=== PATIENT | female | born 1960 ===

== ENCOUNTER 2023-01-08 10:28 | Outpatient (REF) | payer OTHER, SELFPAY ==
--- NOTE | 2023-01-08 11:30 | MHC.AU.HA3 ---
Hearing Instrument Follow-Up- Binaural Date of Visit: 01/08/23 Right Ear: Make, Model, Color, Serial Number: Oticon More 2 miniRITE-T, SN: [id number], chroma beige Dietary Director Repair Warranty: 08/18/2024 Dietary Director Loss and Damage Warranty: 08/18/2024 Battery Size: 312 Lion Trainer/Slim Tube: 2/85 Earmold/Dome/CShell/SlimTip:8mm double calhoun Type of Wax Guard: Prowax minifit Dispensed By: Avery Fernández Date of Fittin07/19/2021 Left Ear: Make, Model, Color, Serial Number: Oticon More 2 miniRITE-T, SN: [id number], chroma beige Dietary Director Repair Warranty: 08/18/2024 Dietary Director Loss and Damage Warranty: 08/18/2024 Battery Size: 312 Lion Trainer/Slim Tube: 2/85 Earmold/Dome/CShell/SlimTip: 8mm double calhoun Type of Wax Guard: Prowax minifit Dispensed By: Avery Fernández Date of Fittin07/19/2021 Follow-Up Summary: The patient here as her left hearing aid recently stopped working. She obtained her hearing aids at [facility] but is in need of a new President + Publisher so she is transferring her care here. Otoscopy reveals clear ear canals bilaterally. Visual inspection of the hearing aids reveals the left hearing aid wax guard is completely occluded. I replaced domes, wax guards and brushed both left and right hearing aids. Listening check reveals clear sound from both devices. The patient was happy to report good sound from both now. I read and saved her hearing aid settings in [employer]. I recommended an updated hearing test as her last was over a year ago at [facility]. She will get an order faxed from her PCP and try to get a copy of her last audigram. She is in need of more domes and wax guards. 1 pack of each dispensed. Reviewed cleaning. The patient states she has [employer], bill to insurance today. Diagnosis Code(s): Primary Diagnosis: H90.3 Bilateral Sensorineural Hearing Loss Signature: Provider: Eli Griffin, [facility]
== END 2023-01-08 10:29 | disposition home or self-care (01) ==
LOC: HO.HAP 10:28
PROVIDERS: Visit Provider Internal Medicine
DX: Z46.1 Encounter for fitting and adjustment of hearing aid (principal); H90.3 Sensorineural hearing loss, bilateral
CPT/HCPCS: 92593; 99499; V5267

== ENCOUNTER 2023-05-30 14:48 | Outpatient (REF) | payer OTHER, SELFPAY ==
--- NOTE | 2023-05-31 10:03 | MHC.AU.HA3 ---
Hearing Instrument Follow-Up- Binaural Date of Visit: 05/31/23 Right Ear: Make, Model, Color, Serial Number: Oticon More 2 miniRITE-T SN: [id number] Color: Chroma beige Intellectual Property Manager Repair Warranty: 08/18/2024 Intellectual Property Manager Loss and Damage Warranty: 08/18/2024 Battery Size: 312 Logging Crew Supervisor/Slim Tube: 2/85 Earmold/Dome/CShell/SlimTip:8mm double calhoun (no retention tail) Type of Wax Guard: miniFit ProWax Dispensed By: [facility] Date of Fittin07/19/2021 Left Ear: Make, Model, Color, Serial Number: Oticon More 2 miniRITE-T SN: [id number] Color: Chroma beige Intellectual Property Manager Repair Warranty: 08/18/2024 Intellectual Property Manager Loss and Damage Warranty: 08/18/2024 Battery Size: 312 Logging Crew Supervisor/Slim Tube: 2/85 Earmold/Dome/CShell/SlimTip: 8mm double calhoun (no retention tail) Type of Wax Guard: miniFit ProWax Dispensed By: [facility] Date of Fittin07/19/2021 Follow-Up Summary: Cherie dropped off her left hearing aid yesterday with a loose accounts receivable supervisor. Upon inspection, accounts receivable supervisor was broken near the junction of the hearing aid. Cleaned hearing aid. Vacuumed microphones. Replaced accounts receivable supervisor and dome. A listening check demonstrated that the hearing aid is in good working order. Recommendations: Hearing instrument follow-up or maintenance as needed. Please contact our clinic with any questions or concerns. Diagnosis Code(s): Primary Diagnosis: H90.3 Bilateral Sensorineural Hearing Loss Signature: Provider: Dani Hernandez, [facility]
== END 2023-05-30 14:49 | disposition home or self-care (01) ==
LOC: HO.HAP 14:48
PROVIDERS: Visit Provider Internal Medicine
DX: Z13.89 Encounter for screening for other disorder (principal)

== ENCOUNTER 2023-05-31 12:16 | Outpatient (REF) | payer OTHER, SELFPAY | END 2023-05-31 12:17 | disposition home or self-care (01) | LOC: HO.HAP 12:16 | PROVIDERS: Visit Provider Internal Medicine | DX: Z46.1 Encounter for fitting and adjustment of hearing aid (principal); H90.3 Sensorineural hearing loss, bilateral | CPT/HCPCS: 92592 ==

== ENCOUNTER 2023-06-07 07:49 | Outpatient (REF) | payer OTHER, SELFPAY ==
--- NOTE | 2023-06-07 08:22 | MHC.AU.HA3 ---
Hearing Instrument Follow-Up- Binaural Date of Visit: 06/07/23 Right Ear: Make, Model, Color, Serial Number: Oticon More 2 miniRITE-T SN: [id number] Color: Chroma beige Lozenge Maker Repair Warranty: 08/18/2024 Lozenge Maker Loss and Damage Warranty: 08/18/2024 Battery Size: 312 Dispatch Coordinator/Slim Tube: 2/85 Earmold/Dome/CShell/SlimTip:8mm double calhoun with retention tail Type of Wax Guard: miniFit ProWax Dispensed By: [facility] Date of Fittin07/19/2021 Left Ear: Make, Model, Color, Serial Number: Oticon More 2 miniRITE-T SN: [id number] Color: Chroma beige Lozenge Maker Repair Warranty: 08/18/2024 Lozenge Maker Loss and Damage Warranty: 08/18/2024 Battery Size: 312 Dispatch Coordinator/Slim Tube: 2/85 Earmold/Dome/CShell/SlimTip: 8mm double calhoun with retention tail Type of Wax Guard: miniFit ProWax Dispensed By: [facility] Date of Fittin07/19/2021 Follow-Up Summary: Talita reported since the wire was changed on her left hearing aid from drop off on 05/30/23, it has been great. However, her right hearing aid seems to work its way out of her ear throughout the day. Cleaned both hearing aids. Replaced domes and wax guards. Added a retention tail to both hearing aids. Practiced insertion. Talita reported it already felt more secure. Recommendations: Hearing instrument follow-up or maintenance as needed. Please contact our clinic with any questions or concerns. Patient will call if problems persist. Diagnosis Code(s): Primary Diagnosis: H90.3 Bilateral Sensorineural Hearing Loss Signature: Provider: Dani Hernandez, [facility]
== END 2023-06-07 07:50 | disposition home or self-care (01) ==
LOC: HO.HAP 07:49
PROVIDERS: Visit Provider Internal Medicine
DX: Z46.1 Encounter for fitting and adjustment of hearing aid (principal); H90.3 Sensorineural hearing loss, bilateral
CPT/HCPCS: 92593; 99499